=== PATIENT | male | born 2000 ===

== ENCOUNTER 2023-08-09 18:56 | Emergency (ER) | payer BC ==
[~2023-08-09] VITALS: Ht 182.9 cm; Wt 90.9 kg
[2023-08-09 19:00] VITALS: BP 156/91; TEMP 98
[2023-08-09 19:43] VITALS: PULSE 71
== END 2023-08-09 19:43 | disposition home or self-care (01) ==
LOC: COL.ER 18:56
DX: S61.012A Laceration without foreign body of left thumb without damage to nail, initial encounter (principal); W26.0XXA Contact with knife, initial encounter; Y93.89 Activity, other specified

== ENCOUNTER 2023-10-07 22:03 | Emergency (ER) | payer BC ==
[~2023-10-07] VITALS: Ht 182.9 cm; Wt 90.9 kg
[2023-10-07 22:05] VITALS: TEMP 98.1
[2023-10-07] MEDS ORDERED: diphenhydrAMINE 50 MG/ML 1 ML VIAL IV ONE (22:15)
[2023-10-07] MEDS ORDERED: methylPREDNISolone Sod Succ 125 MG/2 ML VIAL IV ONE (22:15)
[2023-10-08] MEDS ORDERED: PREDNISONE20 MG PO (00:13)
[2023-10-08 00:28] VITALS: BP 146/87; PULSE 65
== END 2023-10-08 00:28 | disposition home or self-care (01) ==
LOC: COL.ER 22:03
DX: R21 Rash and other nonspecific skin eruption (principal); R22.0 Localized swelling, mass and lump, head